=== PATIENT | female | born 1995 | race Caucasian/White ===

== ENCOUNTER 2017-09-02 01:46 | Emergency (ER) | payer BC ==
--- NOTE | 2017-09-02 03:19 | EDM.PDOC ---
ED HPI GENERAL MEDICAL PROBLEM - General Chief Complaint: ENT Problem Stated Complaint: SORE THROAT Time Seen by Provider: 09/02/17 02:42 Source of Information: Reports: Patient History Limitations: Reports: No Limitations - History of Present Illness INITIAL COMMENTS - FREE TEXT/NARRATIVE: This is a 22-year-old female. On Monday she developed congestion which has progressed and now she has lots of drainage out of her nose and down her throat and her tonsils are swollen and sore and she comes to the ER for evaluation. She has not noted any fever she's had no cough he's had no nausea or vomiting. She does not have a history of strep throat though her family does. She has had no wheezing and no upset stomach. Throat Pain Score (Numeric/FACES): 6 - Related Data Allergies Allergy/AdvReac Type Severity Reaction Status Date / Time No Known Allergies Allergy Verified 09/02/17 03:06 Home Meds: Home Meds Non-Formulary Medication [NF Drug] 1 dose PO DAILY 09/02/17 [History] Past Medical History - Past Health History Medical/Surgical History: Denies Medical/Surgical History Social & Family History - Family History Family Medical History: Noncontributory - Tobacco Use Smoking Status *Q: Never Smoker - Recreational Drug Use Recreational Drug Use: No ED ROS ENT - Review of Systems Review Of Systems: See Below Constitutional: Denies: Fever, Chills HEENT: Reports: Rhinitis, Sinus Problem, Throat Swelling Respiratory: Denies: Shortness of Breath, Wheezing, Cough Cardiovascular: Reports: No Symptoms Endocrine: Reports: No Symptoms GI/Abdominal: Reports: No Symptoms : Reports: No Symptoms Musculoskeletal: Reports: No Symptoms Skin: Reports: No Symptoms Neurological: Reports: No Symptoms Psychiatric: Reports: No Symptoms Hematologic/Lymphatic: Reports: No Symptoms ED EXAM, ENT - Physical Exam Exam: See Below Exam Limited By: No Limitations General Appearance: Alert, WD/WN, No Apparent Distress Eye Exam: Bilateral Eye: Normal Inspection Ears: Normal External Exam, Normal Canal, Normal TMs Nose: Nasal Discharge Mouth/Throat: Normal Lips, Normal Teeth, Tonsillar Erythema, Tonsillar Swelling. No: Tonsillar Exudates Head: Normocephalic Neck: Supple Respiratory/Chest: No Respiratory Distress, Lungs Clear, Normal Breath Sounds Cardiovascular: Regular Rate, Rhythm, No Murmur GI/Abdominal: Soft Back: Full Range of Motion Extremities: Normal Inspection, Normal Range of Motion Neurological: Alert, Oriented Psychiatric: Normal Affect, Normal Mood Skin: Warm, Dry Course - Vital Signs Last Recorded V/S: Last Vital Signs Temp 97.3 F 09/02/17 02:11 Pulse 101 H 09/02/17 02:11 Resp 16 09/02/17 02:11 BP 138/85 09/02/17 02:11 Pulse Ox 98 09/02/17 02:11 - Orders/Labs/Meds Orders: Active Orders 24 hr Category Date Time Status CULTURE STREP A CONFIRMATION [] Stat Lab 09/02/17 02:10 Results STREP SCRN A RAPID W CULT CONF [] Stat Lab 09/02/17 02:10 Results cefTRIAXone [Rocephin] 1 gm Med 09/02/17 03:30 Active Lidocaine 1% [Xylocaine 1%] 2.1 ml IM Q24H Medication Orders Ceftriaxone Sodium 1 gm/ (Lidocaine HCl 2.1 ml) 0 gm IM Q24H GIGI Meds: Medications Generic Name Dose Route Start Last Admin Trade Name Sherron PRN Reason Stop Dose Admin Ceftriaxone Sodium 1 gm/ 0 gm 09/02/17 03:30 Lidocaine HCl 2.1 ml IM Q24H GIGI - Re-Assessments/Exams Free Text/Narrative Re-Assessment/Exam: 09/02/17 03:23 I spoke to the patient regarding the negative strep. She still has a marked sinus infection and tonsillar swelling so I'll vital with some antibiotics. I did appliance counselor her not to have caffeine or sugar since that will tend to suppress her immune system. She is to drink lots of water and natural juices. She needs to rest and sleep as much as possible to help fight this infection. Departure - Departure Time of Disposition: 03:24 Disposition: Home, Self-Care 01 Condition: Fair Clinical Impression: Acute sinusitis Qualifiers: Sinusitis location: maxillary Recurrence: non-recurrent Qualified Code(s): J01.00 - Acute maxillary sinusitis, unspecified Acute pharyngitis Qualifiers: Pharyngitis/tonsillitis etiology: unspecified etiology Qualified Code(s): J02.9 - Acute pharyngitis, unspecified Acute tonsillitis Qualifiers: Pharyngitis/tonsillitis etiology: unspecified etiology Qualified Code(s): J03.90 - Acute tonsillitis, unspecified - Discharge Information Instructions: Sinusitis, Adult, [id number] Referrals: Myrtle Bernardo, [employer] SE[employer] OPERATOR [Primary Care Provider] - Forms: ED Department Discharge Additional Instructions: Get your prescription filled tomorrow and start taking medication tomorrow evening, drink lots of fluids water and natural juices, avoid sugar and caffeine , sleep and rest as much as possible so your body can fight the infection, follow-up with your family doctor later this week for recheck or return to the ER if your symptoms worsen, take Tylenol or ibuprofen as needed for your fever if you develop one - My Orders Last 24 Hours: My Active Orders 09/02/17 02:10 CULTURE STREP A CONFIRMATION [RM] Stat STREP SCRN A RAPID W CULT CONF [RM] Stat 09/02/17 03:30 cefTRIAXone [Rocephin] 1 gm Lidocaine 1% [Xylocaine 1%] 2.1 ml IM Q24H - Assessment/Plan Last 24 Hours: My Active Orders 09/02/17 02:10 CULTURE STREP A CONFIRMATION [RM] Stat STREP SCRN A RAPID W CULT CONF [] Stat 09/02/17 03:30 cefTRIAXone [Rocephin] 1 gm Lidocaine 1% [Xylocaine 1%] 2.1 ml IM Q24H
[2017-09-02] MEDS ORDERED: cefTRIAXone 1 GM, Lidocaine 1% 2.1 ML IM SCH ×2 (03:30)
== END 2017-09-02 03:50 | disposition home or self-care (01) ==
LOC: JD.ED 01:46
DX: J02.9 Acute pharyngitis, unspecified (principal); J01.00 Acute maxillary sinusitis, unspecified
CPT/HCPCS: 87081; 87430; 96372; 99283; J0696